=== PATIENT | female | born 1975 | race American Indian/Alaskan Native ===

== ENCOUNTER 2018-07-22 12:20 | Emergency (ER) | payer SELFPAY ==
[2018-07-22 13:07] VITALS: BP 153/92
--- NOTE | 2018-07-22 17:50 | Emergency Department Report ---
- General Chief complaint: Skin Rash Stated complaint: INSECT BITE ON BUTTOCK/BURNING Time Seen by Provider: 07/22/18 16:24 Source: patient Mode of arrival: Ambulatory Limitations: No Limitations - History of Present Illness Initial comments: 43-year-old -[place] female comes in complaining of insect bites to buttocks. Patient reports that she woke up and noticed that she she had bites to her buttocks that are itchy and red. Patient was not able to identify the bug. Patient reports no past medical history currently takes no medications on a daily basis and has an allergy to penicillin. MD complaint: insect bite/sting -: This morning Location: buttocks Severity scale (0 -10): 7 Quality: other (itchy) Consistency: constant Improves with: none Worsens with: none Context: none Associated symptoms: denies other symptoms Treatments Prior to Arrival: corticosteroid - Related Data Previous Rx's Medication Instructions Recorded Last Taken Type Triamcinolone 0.5% [Kenalog 0.5% 1 applic TP TID #1 tube 07/22/18 Unknown Rx CREAM] Allergies Allergy/AdvReac Type Severity Reaction Status Date / Time Penicillins Allergy Hives Verified 07/22/18 12:28 Abscess Boil HPI - HPI Chief Complaint: Skin Rash Stated Complaint: INSECT BITE ON BUTTOCK/BURNING Time Seen by Provider: 07/22/18 16:24 Home Medications: Previous Rx's Medication Instructions Recorded Last Taken Type Triamcinolone 0.5% [Kenalog 0.5% 1 applic TP TID #1 tube 07/22/18 Unknown Rx CREAM] Allergies/Adverse Reactions: Allergies Allergy/AdvReac Type Severity Reaction Status Date / Time Penicillins Allergy Hives Verified 07/22/18 12:28 ED Review of Systems ROS: Stated complaint: INSECT BITE ON BUTTOCK/BURNING Other details as noted in HPI Comment: All other systems reviewed and negative ED Past Medical Hx - Past Medical History Previous Medical History?: No - Surgical History Past Surgical History?: No - Social History Smoking Status: Never Smoker Substance Use Type: None - Medications Home Medications: Home Medications Medication Instructions Recorded Confirmed Last Taken Type Triamcinolone 0.5% [Kenalog 0.5% 1 applic TP TID #1 tube 07/22/18 Unknown Rx CREAM] ED Physical Exam - General Limitations: No Limitations General appearance: alert, in no apparent distress - Head Head exam: Present: atraumatic, normocephalic - Eye Eye exam: Present: normal appearance - ENT ENT exam: Present: mucous membranes moist - Neck Neck exam: Present: normal inspection - Neurological Exam Neurological exam: Present: alert, oriented X3 - Expanded Skin Exam Expanded Type of lesion: Present: bite/sting Distribution of rash: genitals (buttock) Description of rash: Present: tenderness, erythematous, papular ED Course Vital Signs 07/22/18 13:05 Temperature 98.1 F Pulse Rate 65 Respiratory 17 Rate Blood Pressure 153/92 O2 Sat by Pulse 10 L Oximetry ED Medical Decision Making - Medical Decision Making 43-year-old female comes in with complaint of insect bites to buttocks. Discussed the patient I will prescribe her some triamcinolone ointment and she can take Benadryl for itchiness. Critical care attestation.: If time is entered above; I have spent that time in minutes in the direct care of this critically ill patient, excluding procedure time. ED Disposition Clinical Impression: Insect bites Qualifiers: Encounter type: initial encounter Site of insect bite: female external genital organs Disposition: DC-01 TO HOME OR SELFCARE Is pt being admited?: No Does the pt Need Aspirin: No Condition: Stable Instructions: Insect Bite or Sting (ED) Additional Instructions: Take nhyf-axu-vldygot Benadryl and use triamcinolone cream to bites. Follow up with her primary care provider if his symptoms persist or gets worse. Prescriptions: Triamcinolone 0.5% [Kenalog 0.5% CREAM] 1 applic TP TID #1 tube Referrals: PRATIK AMADOR MD [Primary Care Provider] - 3-5 Days
== END 2018-07-22 18:08 | disposition home or self-care (01) ==
LOC: ED 12:20
DX: S30.866A Insect bite (nonvenomous) of unspecified external genital organs, female, initial encounter (principal); Z88.0 Allergy status to penicillin; W57.XXXA Bitten or stung by nonvenomous insect and other nonvenomous arthropods, initial encounter; Y93.89 Activity, other specified; Y92.89 Other specified places as the place of occurrence of the external cause; Y99.8 Other external cause status
CPT/HCPCS: 99282

== ENCOUNTER 2019-02-25 11:55 | Emergency (ER) | payer SELFPAY ==
[2019-02-25 12:11] VITALS: BP 163/103
[2019-02-25] MEDS ORDERED: ASPIRIN 325 MG TAB PO ONE (12:20)
--- NOTE | 2019-02-25 12:20 | Event Note ---
ED Screening Note Date of service: 02/25/19 Time: 12:19 ED Screening Note: 43 yo female presents with intermittent left sided cp x 2 days NO pmh states gfeels like im having a heart krystle This initial assessment/diagnostic orders/clinical plan/treatment(s) is/are subject to change based on patients health status, clinical progression and re- assessment by fellow clinical providers in the ED. Further treatment and workup at subsequent clinical providers discretion. Patient/guardian urged not to elope from the ED as their condition may be serious if not clinically assessed and managed. Initial orders include: cp char
--- NOTE | 2019-02-25 13:35 | XRay Report ---
CHEST 1 VIEW INDICATION: Chest Pain. COMPARISON: None. FINDINGS: Support devices: None. Heart: Within normal limits. Lungs/Pleura: No acute air space or interstitial disease. Additional findings: None. IMPRESSION: No acute abnormality. Signer Name: Philippe Flynn MD Signed: 02/25/2019 1:30 PM Workstation Name: [employer]
[2019-02-25] MEDS ORDERED: ALUM-MAG HYDROXIDE-SIMETHICONE 200-200-20MG/5ML ORAL LIQD 30 ML PO ONE (13:38)
[2019-02-25] MEDS ORDERED: FAMOTIDINE 20 MG TAB PO ONE (13:38)
[2019-02-25] MEDS ORDERED: LIDOCAINE VISCOUS 2% 15 ML ORAL LIQD PO ONE (13:38)
--- NOTE | 2019-02-25 13:39 | Emergency Department Report ---
ED Chest Pain HPI - General Chief Complaint: Chest Pain Stated Complaint: CHEST PAIN Time Seen by Provider: 02/25/19 13:29 Source: patient Mode of arrival: Ambulatory Limitations: No Limitations - History of Present Illness Initial Comments: 43 yo AA female comes to ER triage anxious, hyperventilating and co chest pain. She left work due to inc stress and came to ER. No PMH. No family hx CAD. On exam in [facility] pt calm and with no pain. She has been on google and talking with her family. She believes she is stressed out. Denies cig/etoh drugs. No hormones. No sob. no fever or chills. Ambulatory and non toxic. MD Complaint: chest pain -: Sudden, days(s) Onset: during rest, during exertion, after eating Pain Location: substernal, left chest Pain Radiation: none Severity: mild Quality: sharp Consistency: intermittent Improves With: nothing Worsens With: nothing Treatments Prior to Arrival: none Aspirin use within the Past 7 Days: (0) No - Related Data On Oral Contraceptives: No Previous Rx's Medication Instructions Recorded Last Taken Type Triamcinolone 0.5% [Kenalog 0.5% 1 applic TP TID #1 tube 07/22/18 Unknown Rx CREAM] Allergies Allergy/AdvReac Type Severity Reaction Status Date / Time Penicillins Allergy Hives Verified 07/22/18 12:28 Heart Score - HEART Score History: Slightly suspicious EKG: Normal Age: < 45 Risk factors: No known risk factors Troponin: < normal limit HEART Score: 0 ED Review of Systems ROS: Stated complaint: CHEST PAIN Other details as noted in HPI Comment: All other systems reviewed and negative ED Past Medical Hx - Past Medical History Previous Medical History?: No - Surgical History Past Surgical History?: No - Family History Family history: other (DAD A/W; MOM DEC CVA) - Social History Smoking Status: Never Smoker Substance Use Type: Alcohol - Medications Home Medications: Home Medications Medication Instructions Recorded Confirmed Last Taken Type Triamcinolone 0.5% [Kenalog 0.5% 1 applic TP TID #1 tube 07/22/18 Unknown Rx CREAM] ED Physical Exam - General Limitations: No Limitations General appearance: alert, in no apparent distress - Head Head exam: Present: atraumatic, normocephalic - Eye Eye exam: Present: normal appearance - ENT ENT exam: Present: mucous membranes moist - Neck Neck exam: Present: normal inspection - Respiratory Respiratory exam: Present: normal lung sounds bilaterally. Absent: respiratory distress - Cardiovascular Cardiovascular Exam: Present: regular rate, normal rhythm. Absent: systolic mu rmur, diastolic murmur, rubs, gallop - GI/Abdominal GI/Abdominal exam: Present: soft, normal bowel sounds - Extremities Exam Extremities exam: Present: normal inspection - Back Exam Back exam: Present: normal inspection - Neurological Exam Neurological exam: Present: alert, oriented X3 - Psychiatric Psychiatric exam: Present: normal affect, normal mood - Skin Skin exam: Present: warm, dry, intact, normal color. Absent: rash ED Course Vital Signs 02/25/19 12:10 Temperature 98.6 F Pulse Rate 69 Respiratory 16 Rate Blood Pressure 163/103 O2 Sat by Pulse 99 Oximetry JAVIER score - Javier Score Age > 65: (0) No Aspirin use within the Past 7 Days: (0) No 3 or more CAD Risk Factors: (0) No 2 or more Angina events in past 24 hrs: (0) No Known CAD with more than 50% Stenosis: (0) No Elevated Cardiac Markers: (0) No ST Deviation Greater than 0.5mm: (0) No JAVIER Score: 0 ED Medical Decision Making - Lab Data Result diagrams: 02/25/19 13:44 02/25/19 13:44 - EKG Data -: EKG Interpreted by [place] EKG shows normal: sinus rhythm - EKG Data When compared to previous EKG there are: no significant change Interpretation: no acute changes - Radiology Data Radiology results: report reviewed, image reviewed - Medical Decision Making Vital Signs (72 hours) 02/25/19 12:10 Temperature 98.6 F Pulse Rate 69 Respiratory 16 Rate Blood Pressure 163/103 O2 Sat by Pulse 99 Oximetry Vital Signs 02/25/19 12:10 Temperature 98.6 F Pulse Rate 69 Respiratory 16 Rate Blood Pressure 163/103 O2 Sat by Pulse 99 Oximetry Labs 02/25/19 02/25/19 13:44 13:44 WBC 10.6 RBC 4.04 Hgb 12.1 Hct 36.1 MCV 89 MCH 30 MCHC 34 RDW 15.2 Plt Count 355 Lymph % (Auto) 31.6 [place] % (Auto) 7.2 Eos % (Auto) 0.9 Baso % (Auto) 0.8 Lymph # 3.4 [place] # 0.8 Eos # 0.1 Baso # 0.1 Seg Neutrophils % 59.5 Seg Neutrophils # 6.3 Sodium 137 Potassium 3.8 Chloride 101.8 Carbon Dioxide 23 Anion Gap 16 BUN 6 L Creatinine 0.8 Estimated GFR > 60 BUN/Creatinine Ratio 8 Glucose 102 H Calcium 9.5 Troponin T < 0.010 labs noted 12 lead nap xray normal VSS BP noted elevated- no hx of the same. States she is just upset. She will monitor her bp. Discussed anxiety with pt- she agrees that is what is wrong. She reports leaving work due to inc stress. dc home with pcp referral. requesting work note - Differential Diagnosis RO ACS/ANXIETY /gerd Critical care attestation.: If time is entered above; I have spent that time in minutes in the direct care of this critically ill patient, excluding procedure time. ED Disposition Clinical Impression: Chest wall pain, Anxiety, Elevated blood pressure reading Disposition: DC-01 TO HOME OR SELFCARE Is pt being admited?: No Does the pt Need Aspirin: No Condition: Stable Instructions: Chest Pain (ED) Additional Instructions: LOW FAT DIET HYDRATE WELL WITH WATER AVOID ALCOHOL/DRUGS FOLLOW UP WITH PCP WE DISCUSSED REFERRAL BELOW Referrals: DJEA SINCLAIR MD [Primary Care Provider] - 3-5 Days [id number] VARELA MD [Staff Physician] - 3-5 Days Time of Disposition: 14:27
[2019-02-25 13:59] LABS: Basophils # (Auto) 0.1 K/mm3 (0.0-0.1); Basophils % (Auto) 0.8 % (0.0-1.8); Eosinophils # (Auto) 0.1 K/mm3 (0.0-0.4); Eosinophils % (Auto) 0.9 % (0.0-4.3); Hematocrit 36.1 % (30.3-42.9); Hemoglobin 12.1 gm/dl (10.1-14.3); Lymphocytes # (Auto) 3.4 K/mm3 (1.2-5.4); Lymphocytes % (Auto) 31.6 % (13.4-35.0); Mean Corpuscular HGB Conc 34 % (30-34); Mean Corpuscular Volume 89 fl (79-97); Monocytes # (Auto) 0.8 K/mm3 (0.0-0.8); Monocytes % (Auto) 7.2 % (0.0-7.3); Platelet Count 355 K/mm3 (140-440); Red Blood Count 4.04 M/mm3 (3.65-5.03); Red Cell Distribution Width 15.2 % (13.2-15.2)
[2019-02-25 14:23] LABS: BUN/Creatinine Ratio 8; Blood Urea Nitrogen 6 mg/dL (7-17); Calcium 9.5 mg/dL (8.4-10.2); Hemolysis Index 4
[2019-02-25 14:38] LABS: HCG Qualitative,Urine Negative (Negative)
[2019-02-25 14:40] LABS: Bilirubin,Urine NEG (Negative); Blood,Urine MOD (Negative); Color,Urine Yellow (Yellow); Protein,Urine <15 mg/dL mg/dL (Negative); Urobilinogen,Urine < 2.0 mg/dL (<2.0)
[2019-02-25 14:42] LABS: Mucus,Urine FEW /HPF; WBC,Urine < 1.0 /HPF (0.0-6.0)
== END 2019-02-25 15:26 | disposition home or self-care (01) ==
LOC: ED 11:55
DX: F41.9 Anxiety disorder, unspecified (principal); R03.0 Elevated blood-pressure reading, without diagnosis of hypertension; Z88.0 Allergy status to penicillin
CPT/HCPCS: 36415; 71045; 80048; 81001; 81025; 84484; 85025; 93005; 93010